=== PATIENT | male | born 1960 | race Caucasian/White ===

== ENCOUNTER 2018-11-11 05:35 | Emergency (ER) | payer BC ==
[2018-11-11 06:54] VITALS: TEMP 97.8; BMI 28.8
[2018-11-11] MEDS ORDERED: KETOROLAC TROMETHAMINE 60 MG/2 ML VIAL IM ONE (09:15)
[2018-11-11] MEDS ORDERED: diazePAM 2 MG TABLET PO ONE (09:15)
[2018-11-11] MEDS ORDERED: traMADol HCL 50 MG TABLET PO ONE (09:15)
[2018-11-11 09:30] LABS: BASO % 0.5 % (0-2.0); EOS % 0.7 % (0-4.5); HEMATOCRIT 44.7 % (35.4-49); HEMOGLOBIN 15.6 GM/dL (11.7-16.9); LYMPH % 16.2 % (8-40); MCH 31.3 pg (25.7-33.7); MCHC 34.9 g/dl (32.0-35.9); MEAN CELL VOLUME 89.7 fl (80-96); MEAN PLT VOLUME 8.4 fl (7.5-11.1); MONO % 5.1 % (3.8-10.2); NEUT % 77.5 % (42.8-82.8); PLATELET COUNT 220 K/MM3 (134-434); RBC 4.98 M/mm3 (4.00-5.60); RDW 12.9 % (11.9-15.9); WHITE BLOOD COUNT 9.7 K/mm3 (4.0-10.0)
--- NOTE | 2018-11-11 09:54 | EKG ---
Test Reason : Blood Pressure : / mmHG Vent. Rate : 061 BPM Atrial Rate : 061 BPM P-R Int : 134 ms QRS Dur : 098 ms QT Int : 426 ms P-R-T Axes : 048 038 018 degrees QTc Int : 428 ms NORMAL SINUS RHYTHM WITH SINUS ARRHYTHMIA NONSPECIFIC T WAVE ABNORMALITY ABNORMAL ECG NO PREVIOUS ECGS AVAILABLE Confirmed by HAMMAD BOLAÑOS, DAVE ([id number]) on 11/11/2018 9:53:51 AM Referred By: Confirmed By:DAVE CUEVA MD
[2018-11-11] MEDS ORDERED: KETOROLAC TROMETHAMINE 30 MG/1 ML VIAL IVPUSH ONE (10:09)
[2018-11-11] MEDS ORDERED: KETOROLAC TROMETHAMINE 30 MG/1 ML VIAL ONE (10:18)
[2018-11-11] MEDS ORDERED: diazePAM 2 MG TABLET ONE (10:18)
[2018-11-11 10:31] LABS: ALBUMIN 4.1 g/dl (3.4-5.0); ALK PHOS 95 U/L (45-117); ANION GAP 7 MMOL/L (8-16); BILIRUBIN,TOTAL 0.7 mg/dL (0.2-1); BLOOD UREA NITROGEN 12.2 mg/dL (7-18); CALCIUM 8.7 mg/dL (8.5-10.1); CHLORIDE 102 mmol/L (98-107); CO2 27 mmol/L (21-32); CREATININE 0.8 mg/dL (0.55-1.3); GLUCOSE,RANDOM 185 mg/dL (74-106); POTASSIUM 4.2 mmol/L (3.5-5.1); SGOT/AST 22 U/L (15-37); SGPT/ALT 66 U/L (13-61); SODIUM 136 mmol/L (136-145); TOT PROT 6.7 g/dl (6.4-8.2)
--- NOTE | 2018-11-11 11:35 | PDOC ---
History of Present Illness - General Chief Complaint: Pain, Acute Stated Complaint: NECK PAIN Time Seen by Provider: 11/11/18 07:30 History Source: Patient Exam Limitations: No Limitations - History of Present Illness Initial Comments: 11/11/18 11:35 58-year-old male with no severe past medical history presents with 9 days of left neck/shoulder pain. Patient states he was moving furniture about 10 days ago, the next day developed left trapezius/scapular discomfort that has been worsening since then. Worse with neck rotation, some paresthesias in the left hand without weakness, no direct injury. Taking intermittent doses of Aleve and Tylenol without relief, was seen at urgent care yesterday and prescribed a muscle relaxant, presents now for evaluation secondary to persistent pain. no direct injury, ? history of lumbar disc disease but no chronic neck issues. no cardiopulmonary complaints. Past History - Past Medical History Allergies/Adverse Reactions: Allergies Allergy/AdvReac Type Severity Reaction Status Date / Time No Known Allergies Allergy Verified 06/28/15 08:38 Home Medications: Ambulatory Orders Citalopram Hydrobromide [Celexa -] 40 mg PO HS 05/31/14 Cetirizine HCl [Zyrtec -] 10 mg PO DAILY PRN 11/11/18 Metaxalone [Metaxall] 800 mg PO ASDIR PRN 11/11/18 Naproxen 500 mg PO BID PRN #20 tablet 11/11/18 Tramadol HCl 50 mg PO BID PRN #10 tablet MDD 2 tabs 11/11/18 CVA: No COPD: No Psychiatric Problems: Yes Other medical history: sleep apnea, on CPAP, - Surgical History Appendectomy: Yes - Immunization History Immunization Up to Date: No - Suicide/Smoking/Psychosocial Hx Smoking History: Never smoked Have you smoked in the past 12 months: No Hx Alcohol Use: No Drug/Substance Use Hx: No Substance Use Type: None Review of Systems - Review of Systems Constitutional: No: Chills, Fever Respiratory: No: Cough, Shortness of Breath Cardiac (ROS): No: Chest Pain ABD/GI: No: Nausea, Vomiting Integumentary: Yes: See HPI All Other Systems: Reviewed and Negative *Physical Exam - Vital Signs Last Vital Signs Temp Pulse Resp BP Pulse Ox 97.8 F 60 18 171/93 H 96 11/11/18 05:38 11/11/18 10:20 11/11/18 10:20 11/11/18 10:20 11/11/18 10:20 - Physical Exam Comments: 11/11/18 11:43 Afebrile. GENERAL: The patient is awake, alert, and fully oriented, in mod acute distress 2/2 L trap pain. HEAD: Normal with no signs of trauma. EYES: PERRL, EOMI, sclera anicteric, conjunctiva clear with no pallor. ENT: oropharynx clear without exudates. Moist mucous membranes. LROM neck 2/2 pain, reproducible tender L trap without swelling/discoloration/hematoma. NECK: Normal range of motion, supple without lymphadenopathy, JVD, or masses. LUNGS: Breath sounds equal, clear to auscultation bilaterally. No wheeze/ crackles. HEART: Regular rate and rhythm, normal S1 and S2 without murmur or rub. ABDOMEN: Soft/nontender/nondistended. BS wnl. No guarding or rebound. No palpable masses. No hepatosplenomegaly. EXTREMITIES: 5/5 strength shoulder/elbow/wrist/hand, sensation and vascular intact distally. Normal range of motion, no edema. 2+ distal pulses. No cords, erythema, or tenderness. NEUROLOGICAL: Cranial nerves II through XII grossly intact. Normal speech, normal gait. PSYCH: Normal mood, normal affect. SKIN: Warm, Dry, no rashes or lesions noted. Heart Score/ECG Review #1 ECG reviewed & interpreted by me at: 06:49 General ECG Interpretation: Sinus Rhythm, Normal Rate (61), Normal Intervals ( qtc 428, borderline LVH), No acute ischemic changes ED Treatment Course - LABORATORY CBC & Chemistry Diagram: 11/11/18 09:12 11/11/18 09:12 - ADDITIONAL ORDERS Additional order review: Laboratory Results 11/11/18 09:12 Sodium 136 Potassium 4.2 Chloride 102 Carbon Dioxide 27 Anion Gap 7 L BUN 12.2 Creatinine 0.8 Est GFR (CKD-EPI)AfAm 114.13 Est GFR (CKD-EPI)NonAf 98.47 Random Glucose 185 H Calcium 8.7 Total Bilirubin 0.7 AST 22 ALT 66 H Alkaline Phosphatase 95 Creatine Kinase 209 Creatine Kinase Index 1.1 CK-MB (CK-2) 2.4 Troponin I < 0.02 Total Protein 6.7 Albumin 4.1 11/11/18 09:12 RBC 4.98 MCV 89.7 MCHC 34.9 RDW 12.9 MPV 8.4 Neutrophils % 77.5 Lymphocytes % 16.2 Monocytes % 5.1 Eosinophils % 0.7 Basophils % 0.5 - Medications Given in the ED: ED Medications Discontinued Medications Generic Name Dose Route Start Last Admin Trade Name Freq PRN Reason Stop Dose Admin Diazepam 2 mg 11/11/18 09:15 11/11/18 10:15 Valium - PO 11/11/18 09:16 2 mg ONCE ONE Administration Ketorolac Tromethamine 60 mg 11/11/18 09:15 11/11/18 11:01 Toradol Injection - IM 11/11/18 09:16 Not Given ONCE ONE Ketorolac Tromethamine 30 mg 11/11/18 10:09 11/11/18 10:15 Toradol Injection - IVPUSH 11/11/18 10:10 30 mg ONCE ONE Administration Tramadol HCl 50 mg 11/11/18 09:15 11/11/18 10:15 Ultram - PO 11/11/18 09:16 Not Given ONCE ONE Medical Decision Making - Medical Decision Making 11/11/18 12:00 58-year-old male presents with 9 days of progressive left trapezius strain, neurologically intact without evidence of infectious process or cardiopulmonary process, no other red flags on history or physical exam. Labs and EKG performed to rule out any atypical ACS presentation, within normal limits and reassuring Patient felt markedly improved after Toradol, tramadol, and Valium for muscle relaxant. Remains neurovascularly intact with significantly increased range of motion of his left shoulder and neck, agrees with discharge plan and will follow -up with orthopedics, understands return criteria. *DC/Admit/Observation/Transfer Diagnosis at time of Disposition: Strain of left trapezius muscle Qualifiers: Encounter type: initial encounter Qualified Code(s): S46.812A - Strain of other muscles, fascia and tendons at shoulder and upper arm level, left arm, initial encounter - Discharge Dispostion Disposition: HOME Condition at time of disposition: Improved - Prescriptions Prescriptions: Naproxen 500 mg PO BID PRN #20 tablet PRN Reason: Pain Tramadol HCl 50 mg PO BID PRN #10 tablet MDD 2 tabs PRN Reason: Pain - Referrals Referrals: Vazquez Del Toro MD [Staff Physician] - - Patient Instructions Printed Discharge Instructions: Whiplash, DI for Cervical Muscle Strain, DI for Cervical Radiculopathy Additional Instructions: Activity as tolerated, avoiding heavy lifting and bedrest. Stay hydrated. Blood tests and an EKG today showed no acute abnormalities. Your pain is likely due to soft tissue strain in the L trapezius muscle. naproxen twice daily as prescribed for 5 days (take with meals), then as needed for moderate pain. muscle relaxant as previously prescribed as needed for muscle spasm. Tramadol as prescribed as needed for severe pain. Tramadol can make you light-headed so take proper precautions. Continue your medications as previously prescribed by your physician. You should follow up with your primary doctor as soon as possible regarding today's emergency department visit. Consider calling Dr. Del Toro/Roberto, an orthopedic , if symptoms persist. An MRI may be necessary to further evaluate the cause. Return to the emergency department for any new or concerning symptoms, particularly persistent or intolerable pain, severe discoloration or swelling, weakness, chest pain or shortness of breath. - Post Discharge Activity
[2018-11-11 13:09] VITALS: BP 184/96; PULSE 78
== END 2018-11-11 12:57 | disposition home or self-care (01) ==
LOC: JER 05:35
PROC: 3E0333Z Introduction of Anti-inflammatory into Peripheral Vein, Percutaneous Approach (ICD-10-PCS; principal; 2018-11-11)
DX: S46.812A Strain of other muscles, fascia and tendons at shoulder and upper arm level, left arm, initial encounter (principal); X50.0XXA Overexertion from strenuous movement or load, initial encounter; Y93.E9 Activity, other interior property and clothing maintenance; Y92.89 Other specified places as the place of occurrence of the external cause; Y99.8 Other external cause status
CPT/HCPCS: 36415; 80053; 82550; 82553; 84484; 85025; 93005; 93010; 99283-25

== ENCOUNTER 2019-05-16 16:58 | Emergency (ER) | payer BC ==
[2019-05-16 17:22] VITALS: BMI 30.5
--- NOTE | 2019-05-16 18:19 | PDOC ---
History of Present Illness - General Chief Complaint: CVA/TIA Stated Complaint: SENT FOR EVALUATION SPEECH PROBLEM 10 DAYS Time Seen by Provider: 05/16/19 17:19 - History of Present Illness Initial Comments: 05/16/19 18:14 59y/o M hx of T2DM, HTN, HLD presents to the ER with complaints of possible TIA from neurologist office. Episodes began 10 days ago with periods of unintelligible speech per his (who is at bedside). Episodes would last a few minutes then resolve. Last week he had an icindent with facial droop which equally resolve. This was followed by a 15 minute dpisode of dizziness, lightheaded, bilateral numbness and tingling the next day. Pt was then referred by PCP to neurologist who sent him here for further evaluation. He denies any falls/head trauma prior to onset of symptoms, loss of consciiousness, nausea, vomiting blurry vision, fevers, chills, diarrhea. 05/16/19 18:24 Past History - Past Medical History Allergies/Adverse Reactions: Allergies Allergy/AdvReac Type Severity Reaction Status Date / Time No Known Allergies Allergy Verified 05/16/19 17:02 Home Medications: Ambulatory Orders Citalopram Hydrobromide [Celexa -] 40 mg PO HS 05/31/14 Cetirizine HCl [Zyrtec -] 10 mg PO DAILY PRN 11/11/18 Atorvastatin Ca [Lipitor] 20 mg PO HS 05/16/19 Metformin HCl [Glucophage] 500 mg PO BID 05/16/19 Telmisartan [Micardis] 40 mg PO HS 05/16/19 CVA: No COPD: No Diabetes: Yes HTN: Yes Hypercholesterolemia: Yes Psychiatric Problems: Yes (ANXIETY) - Surgical History Appendectomy: Yes - Immunization History Immunization Up to Date: No - Psycho Social/Smoking Cessation Hx Smoking History: Never smoked Have you smoked in the past 12 months: No Information on smoking cessation initiated: No Hx Alcohol Use: No Drug/Substance Use Hx: No Substance Use Type: None Review of Systems - Review of Systems Constitutional: No: Chills, Fever HEENTM: No: Blurred Vision Respiratory: No: Cough, Shortness of Breath Cardiac (ROS): No: Chest Pain, Irregular Heart Rate ABD/GI: No: Nausea, Vomiting : No: Burning, Dysuria Musculoskeletal: No: Back Pain, Gout Integumentary: No: Bruising, Change in Color Neurological: Yes: Headache. No: Weakness Psychiatric: Yes: Mood Swings *Physical Exam - Vital Signs Last Vital Signs Temp Pulse Resp BP Pulse Ox 98 F 67 16 136/83 05/16/19 17:01 05/16/19 17:01 05/16/19 17:01 05/16/19 17:01 - Physical Exam 05/16/19 18:23 PE: GENERAL: Awake, alert, and fully oriented, in no acute distress HEAD: No signs of trauma, normocephalic, atraumatic EYES: PERRLA, EOMI, sclera anicteric, conjunctiva clear ENT: Auricles normal inspection, hearing grossly normal, nares patent, oropharynx clear without exudates. Moist mucosa NECK: Normal ROM, supple, no lymphadenopathy, JVD, or masses LUNGS: No distress, speaks full sentences, clear to auscultation bilaterally HEART: Regular rate and rhythm, normal S1 and S2, no murmurs, rubs or gallops, peripheral pulses normal and equal bilaterally. ABDOMEN: Soft, nontender, normoactive bowel sounds. No guarding, no rebound. No masses EXTREMITIES : Normal inspection, Normal range of motion, no edema. No clubbing or cyanosis NEUROLOGICAL: Cranial nerves II through XII grossly intact. Normal speech, normal gait. minute flattening of left nasolabial fold. NIHSS 1 SKIN: Warm, Dry, normal turgor, no rashes or lesions noted ED Treatment Course - LABORATORY CBC & Chemistry Diagram: 05/16/19 18:00 05/16/19 18:00 - RADIOLOGY Radiology Studies Ordered: Category Date Time Status HEAD CT (STROKE) [CT] Stat CT Scan 05/16/19 17:56 Ordered Medical Decision Making - Medical Decision Making 05/16/19 18:24 59y/o M hx of T2DM, HTN, HLD presents to the ER with complaints of possible TIA from neurologist office. cbc, cmp, pt/inr, ptt, ekg, head ct w/o contrast 05/16/19 18:25 EKG: normal sinus rhythm, cannot rule out anterior infrarct, age undetermined. 05/16/19 18:[address] no evidence of acute intracranial pathology signed out to night team 05/31/19 02:09 Discharge - Discharge Information Problems reviewed: Yes Clinical Impression/Diagnosis: History of TIAs Condition: Stable Disposition: HOME - Follow up/Referral Referrals: Shlomo De Anda [Primary Care Provider] - - Patient Discharge Instructions Patient Printed Discharge Instructions: Transient Ischemic Attack Additional Instructions: Aspirin 81 mg daily Return to ER immediately if you have any facial weakness, extremity weakness, difficulty speaking or other acute neurologic symptoms Follow-up with your neurologist, within the next 4 to 5 days - Post Discharge Activity
[2019-05-16 18:24] LABS: BASO % 0.5 % (0-2.0); HEMATOCRIT 40.9 % (35.4-49); HEMOGLOBIN 13.8 GM/dl (11.7-16.9); LYMPH % 31.8 % (8-40); MCHC 33.6 g/dl (32.0-35.9); MEAN CELL VOLUME 92.1 fl (80-96); MONO % 8.2 % (3.8-10.2); NEUT % 54.5 % (42.8-82.8); PLATELET COUNT 251 K/MM3 (134-434); RBC 4.44 M/mm3 (4.00-5.60); RDW 12.1 % (11.9-15.9); WHITE BLOOD COUNT 7.4 K/mm3 (4.0-10.8)
[2019-05-16 18:28] LABS: BILIRUBIN,TOTAL 0.5 mg/dl (0.2-1); CALCIUM 8.9 mg/dl (8.5-10); CREATININE 0.8 mg/dl (0.55-1.3); POTASSIUM 3.9 mmol/L (3.5-5.1); TOT PROT 6.8 g/dl (6.4-8.2)
[2019-05-16 18:29] LABS: ACTIVATED PTT 33.2 SECONDS (25.2-36.5)
[2019-05-16 18:33] LABS: INR 1.19 (0.82-1.09); PROTHROMBIN TIME (PATIENT) 13.3 SEC (10.2-13.0)
[2019-05-16 18:33] LABS: CHOLESTEROL 143 mg/dl (50-200); HDL CHOLESTEROL 38 mg/dl (40-60); LDL CHOLESTEROL (ONLY DFH) 69 mg/dl (5-100); TRIGLYCERIDES 179 mg/dl (0-150)
--- NOTE | 2019-05-16 19:36 | PDOC ---
*Physical Exam - Vital Signs Last Vital Signs Temp Pulse Resp BP Pulse Ox 98 F 67 16 136/83 05/16/19 17:01 05/16/19 17:01 05/16/19 17:01 05/16/19 17:01 ED Treatment Course - LABORATORY CBC & Chemistry Diagram: 05/16/19 18:00 05/16/19 18:00 - ADDITIONAL ORDERS Additional order review: Laboratory Results 05/16/19 05/16/19 05/16/19 18:00 18:00 18:00 PT with INR INR PTT (Actin FS) Sodium Potassium Chloride Carbon Dioxide Anion Gap BUN Creatinine Est GFR (CKD-EPI)AfAm Est GFR (CKD-EPI)NonAf Random Glucose Calcium Total Bilirubin AST ALT Alkaline Phosphatase Creatine Kinase 49 Troponin I < 0.03 Total Protein Albumin Triglycerides 179 H Cholesterol 143 Total LDL Cholesterol 69 HDL Cholesterol 38 L 05/16/19 05/16/19 18:00 17:56 PT with INR 13.3 H INR 1.19 PTT (Actin FS) 33.2 Sodium 133 L Potassium 3.9 Chloride 101 Carbon Dioxide 27 Anion Gap 5 L BUN 15.0 Creatinine 0.8 Est GFR (CKD-EPI)AfAm 113.33 Est GFR (CKD-EPI)NonAf 97.78 Random Glucose 198 H Calcium 8.9 Total Bilirubin 0.5 AST 13 L ALT 21 Alkaline Phosphatase 70 Creatine Kinase Troponin I Total Protein 6.8 Albumin 4.0 Triglycerides Cholesterol Total LDL Cholesterol HDL Cholesterol 05/16/19 18:00 RBC 4.44 MCV 92.1 MCHC 33.6 RDW 12.1 MPV 9.0 Neutrophils % 54.5 D Lymphocytes % 31.8 D Monocytes % 8.2 Eosinophils % 5.0 H D Basophils % 0.5 D ED Progress Note - Progress Note Progress Note: Care of this patient received from . Results of the noncontrast head CT (negative for bleed, mass, CVA or other acute intracranial abnormality) discussed with the patient and his . Plan to admit patient (because of history of multiple TIAs and persistence of some symptoms) discussed with the patient and his . Patient denies any persistence of symptoms. He states that the neurologist (, whom he saw for the first time today) recommended urgent CT today to rule out bleed since the plan was for the patient to start low-dose aspirin daily. In light of the lack of persistence of previous symptoms, no development of new symptoms and the fact that the very little work-up would be likely over the next 2 days (weekend), admission not warranted. Attempt to contact the patient's neurologist, Dr. Guerra, at [facility] unsuccessful: Answering service stated that Dr. Guerra was not on staff at [facility]. Patient and his state that Dr. Guerra did say that he had just joined [facility]. Patient will be started on aspirin 81 mg daily and a copy of the interpretation of the noncontrast head CT will be given to the patient. He should return to the ER immediately if he has any development of neurologic symptoms. Otherwise , he should contact his neurologist and follow-up within the next 3 to 4 days Discharge - Discharge Information Problems reviewed: Yes Clinical Impression/Diagnosis: History of TIAs Condition: Stable Disposition: HOME - Follow up/Referral Referrals: Shlomo De Anda [Primary Care Provider] - - Patient Discharge Instructions Patient Printed Discharge Instructions: Transient Ischemic Attack Additional Instructions: Aspirin 81 mg daily Return to ER immediately if you have any facial weakness, extremity weakness, difficulty speaking or other acute neurologic symptoms Follow-up with your neurologist, within the next 4 to 5 days - Post Discharge Activity
[2019-05-16 19:58] VITALS: BP 142/82; PULSE 58; TEMP 97.8
[2019-05-16] MEDS ORDERED: ASPIRIN 81 MG CHEWABLE TABLETS ONE (21:46)
--- NOTE | 2019-05-17 09:16 | EKG ---
Test Reason : Blood Pressure : / mmHG Vent. Rate : 069 BPM Atrial Rate : 069 BPM P-R Int : 156 ms QRS Dur : 110 ms QT Int : 408 ms P-R-T Axes : 033 -10 013 degrees QTc Int : 437 ms NORMAL SINUS RHYTHM CANNOT RULE OUT ANTERIOR INFARCT , AGE UNDETERMINED ABNORMAL ECG WHEN COMPARED WITH ECG OF 11-NOV-2018 06:49, NO SIGNIFICANT CHANGE WAS FOUND Confirmed by TORY BOLAÑOS, NATALIE ([id number]) on 05/17/2019 9:16:42 AM Referred By: MD RODNEY Confirmed By:NATALIE SPEARS MD
== END 2019-05-16 21:48 | disposition home or self-care (01) ==
LOC: FER 16:58
DX: Z86.73 Personal history of transient ischemic attack (TIA), and cerebral infarction without residual deficits (principal); E78.5 Hyperlipidemia, unspecified; I10 Essential (primary) hypertension; E11.9 Type 2 diabetes mellitus without complications; F41.9 Anxiety disorder, unspecified
CPT/HCPCS: 36415; 70450-TC; 71045-TC-FY; 80053; 80061; 82550; 84484; 85025; 85610; 85730; 93005; 99284-25

== ENCOUNTER 2019-06-24 20:54 | Inpatient (IN) | payer BC ==
[2019-06-24 21:22] VITALS: BMI 30.5
--- NOTE | 2019-06-24 21:57 | PDOC ---
History of Present Illness - General Chief Complaint: CVA/TIA Stated Complaint: POSSIBLE TIA SYMPTOMS Time Seen by Provider: 06/24/19 21:28 - History of Present Illness Initial Comments: 06/24/19 22:07 59 y/o M with PMH of HTN, TIA, DM, HLD, RACH presents to the ED for TIA symptoms. Pt and explain that around lunch time he noticed his right eyelid was droopy while at work . Then around dinner time (6pm), the noted that he was slurring his speech and that he had a right sided facial droop. According to the , the pt still is dysathric by the time of this interview. On further questioning, Pt had a similar episode a month ago and his neurologist (Dr Guerra) atothe time sent him for CT scan of the head and TIA/ CVA work/up which came back negative. He placed him on Aspirin 325 and increased is atorvastatin to 80mg daily. Pt denies any other FND, GALVAN, chest pain , palpitations, SOB or change in Urine/BM. PSH: umbilical hernia repair, appendectomy Social Hx:denies ROS: Constitutional: no fever,no chills HEENT: no throat pain, no dysphagia Cardiovascular: no chest pain, no palpitations Respiratory: no cough, no shortness of breath Gastrointestinal: no Nausea and vomiting Genitourinary: no dysuria no urgency Musculoskeletal: no myalgia, no arthralgia Skin: no bruising Neurologic: no headache, no weakness Psych: no agitation, no anxiety PE: NIHSS 1 VSS GEN: NAD Neuro: minimal flattening of the nasolabial fold, CN 2-12 intact, no nystagmus, motor strength 5/5 in all muscle groups, sensation intact throughout, 2+ reflexes in U&L extremities, gait normal, no dysdiadokinesia, no dysmetria, negative romberg, HEENT: PERRLA, moist membrane, clear conjunctiva NECK: no JVD CHEST: vesicular breath sounds b/l HEART: RRR no murmur, rubs or gallop ABDOMEN: + BS, obese abdomen, NTND Extremities: 2+ pulses, no edema SKIN: no bruises MSK: no arthralgia, no joint tenderness assessment: TIA vs early CVA vs neuromuscular disease 06/24/19 22:10 Plan: Head CT w/o contrast, EKG, cardiac profile, CBC, CMP, lipid panel, Pt/INR/ aPTT, UA, type and screen, stroke order set call Neuro 06/24/19 22:15 spoke with neurology : give patient aspirin 325, and will follow pt in the morning in light of questionable timing 06/24/19 22:37 EKG NSR , QTc 06/24/19 22:47 CBC WBC 9.3 K/mm3 (4.0-10.0) 06/24/19 22:10 RBC 4.55 M/mm3 (4.00-5.60) 06/24/19 22:10 Hgb 14.0 GM/dL (11.7-16.9) 06/24/19 22:10 Hct 41.5 % (35.4-49) 06/24/19 22:10 MCV 91.1 fl (80-96) 06/24/19 22:10 MCH 30.7 pg (25.7-33.7) 06/24/19 22:10 MCHC 33.7 g/dl (32.0-35.9) 06/24/19 22:10 RDW 13.1 % (11.9-15.9) 06/24/19 22:10 Plt Count 215 K/MM3 (134-434) 06/24/19 22:10 MPV 9.0 fl (7.5-11.1) 06/24/19 22:10 Absolute Neuts (auto) 5.5 K/mm3 (1.5-8.0) 06/24/19 22:10 Neutrophils % 58.8 % (42.8-82.8) D 06/24/19 22:10 Lymphocytes % 27.8 % (8-40) D 06/24/19 22:10 Monocytes % 9.2 % (3.8-10.2) D 06/24/19 22:10 Eosinophils % 3.8 % (0-4.5) D 06/24/19 22:10 Basophils % 0.4 % (0-2.0) 06/24/19 22:10 Nucleated RBC % 0 % (0-0) 06/24/19 22:10 unremarkable 06/24/19 22:52 INR, PTT INR 1.06 (0.83-1.09) 06/24/19 22:10 PT 12.50, aPTT 35.1 cmp and lipid panel pending 06/24/19 22:54 CMP Sodium 139 mmol/L (136-145) 06/24/19 22:10 Potassium 3.8 mmol/L (3.5-5.1) 06/24/19 22:10 Chloride 103 mmol/L (98-107) 06/24/19 22:10 Carbon Dioxide 28 mmol/L (21-32) 06/24/19 22:10 Anion Gap 8 MMOL/L (8-16) 06/24/19 22:10 BUN 18.9 mg/dL (7-18) H 06/24/19 22:10 Creatinine 0.9 mg/dL (0.55-1.3) 06/24/19 22:10 Est GFR (CKD-EPI)AfAm 107.97 06/24/19 22:10 Est GFR (CKD-EPI)NonAf 93.16 06/24/19 22:10 Random Glucose 189 mg/dL (74-106) H 06/24/19 22:10 Calcium 8.9 mg/dL (8.5-10.1) 06/24/19 22:10 Total Bilirubin 0.8 mg/dL (0.2-1) 06/24/19 22:10 AST 18 U/L (15-37) 06/24/19 22:10 ALT 43 U/L (13-61) 06/24/19 22:10 Alkaline Phosphatase 93 U/L (45-117) 06/24/19 22:10 Creatine Kinase 87 U/L (26-308) 06/24/19 22:10 Troponin I < 0.02 ng/ml (0.00-0.05) 06/24/19 22:10 Total Protein 6.8 g/dl (6.4-8.2) 06/24/19 22:10 Albumin 3.9 g/dl (3.4-5.0) 06/24/19 22:10 Triglycerides 122 mg/dL (0-150) 06/24/19 22:10 Cholesterol 123 mg/dL (50-200) 06/24/19 22:10 Total LDL Cholesterol 57 mg/dL (5-100) 06/24/19 22:10 HDL Cholesterol 48 mg/dL (40-60) 02/25/20 22:10 unremarkable except for hyperglycemia CXR with no acute pathology UA pending 06/24/19 23:18 will send admission microblog 06/24/19 23:25 06/24/19 23:40 Past History - Past Medical History Allergies/Adverse Reactions: Allergies Allergy/AdvReac Type Severity Reaction Status Date / Time No Known Allergies Allergy Verified 06/24/19 22:47 Home Medications: Ambulatory Orders Citalopram Hydrobromide [Celexa -] 40 mg PO HS 05/31/14 Cetirizine HCl [Zyrtec -] 10 mg PO DAILY PRN 11/11/18 Atorvastatin Ca [Lipitor] 20 mg PO HS 05/16/19 Metformin HCl [Glucophage] 500 mg PO BID 05/16/19 Telmisartan [Micardis] 40 mg PO HS 05/16/19 CVA: No COPD: No Diabetes: Yes HTN: Yes Hypercholesterolemia: Yes Psychiatric Problems: Yes (ANXIETY) - Surgical History Appendectomy: Yes - Immunization History Immunization Up to Date: No - Psycho Social/Smoking Cessation Hx Smoking History: Never smoked Have you smoked in the past 12 months: No Information on smoking cessation initiated: No Hx Alcohol Use: No Drug/Substance Use Hx: No Substance Use Type: None Neuro Specific PMHX - Complaint Specific PMHX Glaucoma: No Herniated Disk: No Laminectomy: No Migraine: No Multiple Sclerosis: No Neuropathy: No TIA: Yes *Physical Exam - Vital Signs Last Vital Signs Temp Pulse Resp BP Pulse Ox 98.1 F 72 18 149/89 100 06/24/19 21:10 06/24/19 21:10 06/24/19 21:10 06/24/19 21:10 06/24/19 21:10 NIH Stroke Scale - Last Known Well Date/Time & Onset Date Last Known Well: 06/24/19 Time Last Known Well: 18:00 (unclear exactly when started but noticed it at dinner) - Initial Evaluation Level of consciousness: Alert Ask patient the month and their age: Answers both correctly Ask patient to open & close eyes; make fist and let go: Obeys both correctly Best gaze (horizontal eye movement): Normal Visual field testing: No visual field loss Facial paresis (Show teeth/raise eyebrows/close eyes tight): Minor paralysis ( flattened nasolabial fold, asymmetry on smiling) Motor Function: Left Arm: Normal Motor Function: Left Leg: Normal (extends leg 30 degrees for 5 seconds without drift) Motor Function: Right Leg: Normal (extends leg 30 degrees for 5 seconds without drift) Limb Ataxia: No ataxia Sensory(Use pinprick test arms,legs,trunk,face/side to side): Normal Best language (Describe picture, name items, read sentences): No Aphasia Dysarthria (read several words): Normal articulation Extinction and Inattention: No abnormality Discharge - Discharge Information Problems reviewed: Yes Clinical Impression/Diagnosis: History of TIAs Condition: Stable - Admission Yes - Follow up/Referral Referrals: ON STAFF,NOT [Primary Care Provider] - - Patient Discharge Instructions - Post Discharge Activity
[2019-06-24] MEDS ORDERED: SODIUM CHLORIDE 1,000 ML IV SCH (22:00)
[2019-06-24] MEDS ORDERED: ASPIRIN 325 MG TABLET PO ONE (22:06)
[2019-06-24] MEDS ORDERED: ATORVASTATIN CA 80 MG TABLET (FP) PO ONE (22:07)
[2019-06-24 22:51] LABS: BASO % 0.4 % (0-2.0); EOS % 3.8 % (0-4.5); HEMATOCRIT 41.5 % (35.4-49); LYMPH % 27.8 % (8-40); MCH 30.7 pg (25.7-33.7); MCHC 33.7 g/dl (32.0-35.9); MEAN CELL VOLUME 91.1 fl (80-96); MONO % 9.2 % (3.8-10.2); NEUT % 58.8 % (42.8-82.8); PLATELET COUNT 215 K/MM3 (134-434); RBC 4.55 M/mm3 (4.00-5.60); RDW 13.1 % (11.9-15.9); WHITE BLOOD COUNT 9.3 K/mm3 (4.0-10.0)
[2019-06-24 23:01] LABS: INR 1.06 (0.83-1.09); PROTHROMBIN TIME (PATIENT) 12.5 SEC (9.7-13.0)
[2019-06-24 23:04] LABS: ACTIVATED PTT 35.1 SECONDS (25.2-36.5)
[2019-06-24] MEDS ORDERED: ASPIRIN 325 MG ENTERIC COATED TABLET (FP) ONE (23:04)
[2019-06-24] MEDS ORDERED: ATORVASTATIN CA 80 MG TABLET (FP) ONE (23:04)
[2019-06-24 23:13] LABS: ALBUMIN 3.9 g/dl (3.4-5.0); BILIRUBIN,TOTAL 0.8 mg/dL (0.2-1); BLOOD UREA NITROGEN 18.9 mg/dL (7-18); CALCIUM 8.9 mg/dL (8.5-10.1); CREATININE 0.9 mg/dL (0.55-1.3); POTASSIUM 3.8 mmol/L (3.5-5.1); TOT PROT 6.8 g/dl (6.4-8.2)
--- NOTE | 2019-06-24 23:22 | PDOC ---
Documentation entered by Genie Quinn SCRIBE, acting as scribe for Shereen Quevedo DO. Shereen Quevedo DO: This documentation has been prepared by the Kai frausto Nirvannie, SCRIBE, under my direction and personally reviewed by me in its entirety. I confirm that the documentation accurately reflects all work, treatment, procedures, and medical decision making performed by me. Attending Attestation - Resident Resident Name: KennethJeane - ED Attending Attestation I have performed the following: I have examined & evaluated the patient, The case was reviewed & discussed with the resident, I agree w/resident's findings & plan, Exceptions are as noted - HPI HPI: 06/24/19 22:06 The patient is a 59 year old male, with a significant past medical history of TIA, T2DM, HTN, HLD, who presents to the emergency department with right facial droop, right eye droop, and dysarthria. As per at bedside, while at work at 12pm patient had depicted a right facial droop and right eye droop. at bedside notes at 6pm upon returning home from work he had perceived dysarthria by his . and family denies any recent head/neck trauma or recent falls. Patient notes a recent full outpatient workup (echo, carotid uss) at [facility] after an ER visit for TIA. Allergies: NKDA Primary Care Physician: Dr. De Anda Neurologist: Dr. Guerra Last known well: Before 12pm - Physicial Exam PE: 06/24/19 22:09 Agree with resident exam. 06/24/19 22:39 GENERAL: Awake, in no acute distress HEAD: No signs of trauma EYES: PERRLA, EOMI, sclera anicteric, conjunctiva clear, visual acuity grossly intact ENT: Moist mucosa NECK: Normal ROM, supple, no lymphadenopathy or JVD. LUNGS: Breath sounds equal, clear to auscultation bilaterally. No wheezes, and no crackles. Normal work of breathing. HEART: Regular rate and rhythm, normal S1 and S2, no murmurs, rubs or gallops ABDOMEN: Soft, nontender, normoactive bowel sounds. No guarding. Non- distended. BACK: No midline tenderness. EXTREMITIES: Normal range of motion, no edema. No clubbing or cyanosis. No erythema, or tenderness NEUROLOGICAL: Alert, and oriented x4, Strength and sensation 5/5 and grossly intact to upper and lower extremities. +Mild right facial droop mainly affecting the upper lid. SKIN: Warm, Dry, normal turgor, no rashes or lesions noted. - Medical Decision Making 06/24/19 23:21 59-year-old male with right lid droop and dysarthria perceived by family now partially resolved Onset of lid symptoms sometime between 8 AM and noon, onset of perceived dysarthria between 12 PM and 6 PM Patient states he feels fine CT scan of the brain shows nothing acute Case discussed with neurology on-call by the medical lab specialist who recommends aspirin and admission for further evaluation as this is the second episode patient has had NIH scale recorded Due to questionable time of onset of symptoms and partial resolution patient will not qualify for thrombolytics at this time
[2019-06-24 23:37] LABS: PH,URINE 5.5 (5.0-8.0); URINE APPEARANCE CLEAR; URINE BILIRUBIN NEGATIVE (NEGATIVE); URINE COLOR YELLOW; URINE GLUCOSE (UA) TRACE (NEGATIVE); URINE KETONE NEGATIVE (NEGATIVE); URINE LEUK ESTERASE NEGATIVE (NEGATIVE); URINE NITRITE NEGATIVE (NEGATIVE); URINE PROTEIN NEGATIVE (NEGATIVE)
--- NOTE | 2019-06-25 00:12 | HP ---
CHIEF COMPLAINT: dysarthria, L facial droop PCP: Dr. Contreras HISTORY OF PRESENT ILLNESS: 59 y.o. M PMH HTN, HLD, DM type 2, RAHC, TIA 1 month ago presenting for L facial droop & mild dysarthria. The patient said he noticed these symptoms at 11AM when his pointed them out. When he returned home from work his son also noticed these symptoms which prompted him to come to the ER. He denies vision changes but does endorse a mild frontal headache which he has had intermittently over the last few weeks. The patient states he was only recently this year diagnosed with HTN, HLD and DM and was placed on medications for the first time by his PCP. He has been compliant with all medications. As per patient he experienced similar symptoms 1 month ago- was worked up for tia, no ischemia/ hemorrhage seen on Ct head at that time. ER course was notable for: (1) NIHSS 0 (2) CT head negative for ischemia/ hemorrhage (3) Ed contacted neuro, would like patient admitted for tia workup as this is 2nd episode in 1 month Recent Travel: denies PAST MEDICAL HISTORY: as per hpi PAST SURGICAL HISTORY: appendectomy Social History: Smoking: never smoked Alcohol: social use Drugs: denies Allergies No Known Allergies Allergy (Verified 06/24/19 22:47) HOME MEDICATIONS: Home Medications Medication Instructions Recorded Citalopram Hydrobromide [Celexa -] 40 mg PO HS 05/31/14 Cetirizine HCl [Zyrtec -] 10 mg PO DAILY PRN 11/11/18 Atorvastatin Ca [Lipitor] 40 mg PO HS 05/16/19 Metformin HCl [Glucophage] 500 mg PO BID 05/16/19 Telmisartan [Micardis] 40 mg PO HS 05/16/19 REVIEW OF SYSTEMS CONSTITUTIONAL: Absent: fever, chills, diaphoresis, generalized weakness, malaise, loss of appetite, weight change HEENT: Absent: rhinorrhea, nasal congestion, throat pain, throat swelling, difficulty swallowing, mouth swelling, ear pain, eye pain, visual changes CARDIOVASCULAR: Absent: chest pain, syncope, palpitations, irregular heart rate, lightheadedness, peripheral edema RESPIRATORY: Absent: cough, shortness of breath, dyspnea with exertion, orthopnea, wheezing, stridor, hemoptysis GASTROINTESTINAL: Absent: abdominal pain, abdominal distension, nausea, vomiting, diarrhea, constipation, melena, hematochezia GENITOURINARY: Absent: dysuria, frequency, urgency, hesitancy, hematuria, flank pain, genital pain MUSCULOSKELETAL: Absent: myalgia, arthralgia, joint swelling, back pain, neck pain SKIN: Absent: rash, itching, pallor HEMATOLOGIC/IMMUNOLOGIC: Absent: easy bleeding, easy bruising, lymphadenopathy, frequent infections ENDOCRINE: Absent: unexplained weight gain, unexplained weight loss, heat intolerance, cold intolerance NEUROLOGIC: headache, L facial droop, R periorbital numbness Absent: focal weakness or paresthesias, dizziness, unsteady gait, seizure, mental status changes, bladder or bowel incontinence PSYCHIATRIC: Absent: anxiety, depression, suicidal or homicidal ideation, hallucinations. PHYSICAL EXAMINATION Vital Signs - 24 hr 06/24/19 06/24/19 21:10 22:35 Temperature 98.1 F Pulse Rate 72 Respiratory 18 Rate Blood Pressure 149/89 O2 Sat by Pulse 100 98 Oximetry (%) GENERAL: Awake, alert, and fully oriented, in no acute distress. HEENT: NCAT. No facial droop on my exam/ no flattened nasolabial folds. No JVD LUNGS: Breath sounds equal, clear to auscultation bilaterally. No wheezes, and no crackles. No accessory muscle use. HEART: Regular rate and rhythm, normal S1 and S2 without murmur, rub or gallop. ABDOMEN: Soft, nontender, not distended, normoactive bowel sounds, no guarding MUSCULOSKELETAL: Normal range of motion at all joints. EXTREMITIES: 2+ pulses, warm, well-perfused. No peripheral edema. NEUROLOGICAL: Cranial nerves II-XII intact. Normal speech. Normal gait. Motor 5/5 all extremities. Sensory intact all extremities & CN5. Sharp/dull sensation intact b/l UE & LE. PSYCHIATRIC: Appropriate mood and affect. SKIN: Warm, dry, normal turgor, no rashes or lesions noted Laboratory Results - last 24 hr 06/24/19 06/24/19 06/24/19 22:10 22:10 22:10 WBC 9.3 RBC 4.55 Hgb 14.0 Hct 41.5 MCV 91.1 MCH 30.7 MCHC 33.7 RDW 13.1 Plt Count 215 MPV 9.0 Absolute Neuts (auto) 5.5 Neutrophils % 58.8 D Lymphocytes % 27.8 D Monocytes % 9.2 D Eosinophils % 3.8 D Basophils % 0.4 Nucleated RBC % 0 PT with INR 12.50 INR 1.06 PTT (Actin FS) 35.1 Sodium Potassium Chloride Carbon Dioxide Anion Gap BUN Creatinine Est GFR (CKD-EPI)AfAm Est GFR (CKD-EPI)NonAf Random Glucose Calcium Total Bilirubin AST ALT Alkaline Phosphatase Creatine Kinase 87 Troponin I < 0.02 Total Protein Albumin Triglycerides Cholesterol Total LDL Cholesterol HDL Cholesterol Urine Color Urine Appearance Urine pH Ur Specific [place] Urine Protein Urine Glucose (UA) Urine Ketones Urine Blood Urine Nitrite Urine Bilirubin Urine Urobilinogen Ur Leukocyte Esterase Blood Type Antibody Screen 06/24/19 06/24/19 06/24/19 22:10 22:10 23:25 WBC RBC Hgb Hct MCV MCH MCHC RDW Plt Count MPV Absolute Neuts (auto) Neutrophils % Lymphocytes % Monocytes % Eosinophils % Basophils % Nucleated RBC % PT with INR INR PTT (Actin FS) Sodium 139 Potassium 3.8 Chloride 103 Carbon Dioxide 28 Anion Gap 8 BUN 18.9 H Creatinine 0.9 Est GFR (CKD-EPI)AfAm 107.97 Est GFR (CKD-EPI)NonAf 93.16 Random Glucose 189 H Calcium 8.9 Total Bilirubin 0.8 AST 18 ALT 43 Alkaline Phosphatase 93 Creatine Kinase Troponin I Total Protein 6.8 Albumin 3.9 Triglycerides 122 Cholesterol 123 Total LDL Cholesterol 57 HDL Cholesterol 48 Urine Color Yellow Urine Appearance Clear Urine pH 5.5 Ur Specific [place] 1.024 Urine Protein Negative Urine Glucose (UA) Trace Urine Ketones Negative Urine Blood Negative Urine Nitrite Negative Urine Bilirubin Negative Urine Urobilinogen 1.0 Ur Leukocyte Esterase Negative Blood Type O POSITIVE Antibody Screen Negative ASSESSMENT/PLAN: 59 y.o. M PMH HTN, HLD, DM type 2, RACH, TIA presenting for L facial droop & dysarthria #TIA -CT head negative for acute ischemic or hemorrhagic changes -symptoms resolved -s/p ASA 325 mg -continue aspirin & high intensity statin -EKG showing NSR, qtc 427, no ST changes -trop negative x1 -f/u echo, carotid U/S -speech & swallow -neuro consulted -- Dr. Lunsford #HTN -restart AM home meds -monitor BP #HLD -continue high intensity statin -lipid panel WNL #DM2 -holding home oral agents -BGMs ACHS -ISS #FEN -gentle hydration ns @45cc/hr -monitor electrolytes -sodium/ fat controlled diet #Dispo telemetry Visit type - Emergency Visit Emergency Visit: Yes ED Registration Date: 06/25/19 Care time: The patient presented to the Emergency Department on the above date and was hospitalized for further evaluation of their emergent condition. - New Patient This patient is new to me today: Yes Date on this admission: 07/04/19 - Critical Care Critical Care patient: No ATTENDING PHYSICIAN STATEMENT I saw and evaluated the patient. I reviewed the resident's note and discussed the case with the resident. I agree with the resident's findings and plan as documented. SUBJECTIVE: OBJECTIVE: ASSESSMENT AND PLAN:
--- NOTE | 2019-06-25 00:13 | PN.NIHSS ---
NIH Stroke Scale - Initial Evaluation Level of consciousness: Alert Ask patient the month and their age: Answers both correctly Ask patient to open & close eyes; make fist and let go: Obeys both correctly Best gaze (horizontal eye movement): Normal Visual field testing: No visual field loss Facial paresis (Show teeth/raise eyebrows/close eyes tight): Normal symmetrical movement Motor Function: Left Arm: Normal Motor Function: Right Arm: Normal (extends arm 90 (or 45) degrees for 10 seconds without drift Motor Function: Left Leg: Normal (extends leg 30 degrees for 5 seconds without drift) Motor Function: Right Leg: Normal (extends leg 30 degrees for 5 seconds without drift) Limb Ataxia: No ataxia Sensory(Use pinprick test arms,legs,trunk,face/side to side): Normal Best language (Describe picture, name items, read sentences): No Aphasia Dysarthria (read several words): Normal articulation Extinction and Inattention: No abnormality - Total Score NIH Stroke Scale Score: 0
[2019-06-25] MEDS ORDERED: SODIUM CHLORIDE 1,000 ML IV SCH (00:45)
--- NOTE | 2019-06-25 01:21 | PN ---
Teaching Attending Note Name of Resident: Jagruti Walter ATTENDING PHYSICIAN STATEMENT I saw and evaluated the patient. I reviewed the resident's note and discussed the case with the resident. I agree with the resident's findings and plan as documented. SUBJECTIVE: 59-year-old male with history of hypertension, TIA about 1 month ago, diabetes mellitus, dyslipidemia, obstructive sleep apnea presents complaining of right eye droopiness and left mouth drooping which started at noon on 06/24/2019 and lasted several hours possibly until 8 PM that same day. Patient complained of mild frontal headache that was associated with this patient reported some dysarthria as well. He reported similar episode about 1 month ago at that time he reports TIA/CVA work-up came back as negative. At this time patient reports that he is back to his baseline and rather asymptomatic. He denies any headaches. OBJECTIVE: Last Vital Signs Temp Pulse Resp BP Pulse Ox 98.1 F 72 18 149/89 98 06/24/19 21:10 06/24/19 21:10 06/24/19 21:10 06/24/19 21:10 06/24/19 22:35 On physical exam patient was a middle-age man not in any distress. Neurological exam was essentially normal. No cranial nerve deficits appreciated no motor weakness in upper or lower extremities or sensory deficits appreciated. Lungs were clear to auscultation bilaterally, heart sounds were normal S1, S2 regular rate and rhythm. Abdomen was soft nontender. Abnormal Lab Results 06/24/19 22:10 BUN 18.9 H Random Glucose [address] evidence of acute intracranial pathology. ASSESSMENT AND PLAN: TIAright sided ptosis, left mouth droopinessnow resolved. Head CT was negative for any acute insults. Admit to telemetry Neurology consult Transthoracic echo Carotid Dopplerfollow-up report Brain MRI Neurochecks N.p.o. and speech and swallow eval Physical therapy evaluation #Diabetes mellitusuncontrolled NovoLog siding scale A1c #Hypertension Continue with home meds #RACH CPAP at night DVT prophylaxisheparin subcutaneously
[2019-06-25] MEDS ORDERED: PATIENT'S OWN MEDICATION (NON-FORMULARY) (Cetirizine Hcl 10 MG) PO PRN (04:31)
[2019-06-25 06:46] LABS: BASO % 0.5 % (0-2.0); HEMATOCRIT 40.2 % (35.4-49); HEMOGLOBIN 13.8 GM/dL (11.7-16.9); LYMPH % 32.6 % (8-40); MCH 30.9 pg (25.7-33.7); MCHC 34.3 g/dl (32.0-35.9); MEAN PLT VOLUME 8.8 fl (7.5-11.1); NEUT % 52.9 % (42.8-82.8); PLATELET COUNT 200 K/MM3 (134-434); RBC 4.47 M/mm3 (4.00-5.60); RDW 12.9 % (11.9-15.9); WHITE BLOOD COUNT 6.9 K/mm3 (4.0-10.0)
[2019-06-25 07:15] LABS: ALBUMIN 3.8 g/dl (3.4-5.0); ALK PHOS 83 U/L (45-117); ANION GAP 6 MMOL/L (8-16); BLOOD UREA NITROGEN 16.9 mg/dL (7-18); CALCIUM 8.8 mg/dL (8.5-10.1); CHLORIDE 103 mmol/L (98-107); CO2 30 mmol/L (21-32); CREATININE 0.8 mg/dL (0.55-1.3); GLUCOSE,RANDOM 117 mg/dL (74-106); POTASSIUM 4.1 mmol/L (3.5-5.1); SGOT/AST 18 U/L (15-37); SGPT/ALT 41 U/L (13-61); SODIUM 140 mmol/L (136-145); TOT PROT 6.4 g/dl (6.4-8.2)
[2019-06-25 07:31] LABS: INR 1.11 (0.83-1.09); PROTHROMBIN TIME (PATIENT) 13.1 SEC (9.7-13.0)
[2019-06-25] MEDS: INSULIN SLIDING SCALE (NOVOLOG) 1 VIAL SQ SCH ×2 (07:33→12:57)
[2019-06-25 07:34] LABS: ACTIVATED PTT 36.1 SECONDS (25.2-36.5)
--- NOTE | 2019-06-25 08:33 | CON.NEURO ---
Consult - Alcohol/Substance Use Hx Alcohol Use: No - Smoking History Smoking history: Never smoked Have you smoked in the past 12 months: No Home Medications - Allergies Allergies/Adverse Reactions: Allergies Allergy/AdvReac Type Severity Reaction Status Date / Time No Known Allergies Allergy Verified 06/24/19 22:47 - Home Medications Home Medications: Ambulatory Orders Citalopram Hydrobromide [Celexa -] 40 mg PO HS 05/31/14 Cetirizine HCl [Zyrtec -] 10 mg PO DAILY PRN 11/11/18 Atorvastatin Ca [Lipitor] 40 mg PO HS 05/16/19 Metformin HCl [Glucophage] 500 mg PO BID 05/16/19 Telmisartan [Micardis] 40 mg PO HS 05/16/19 Physical Exam-Neuro Vital Signs: Vital Signs Temperature 98.1 F 06/24/19 21:10 Pulse Rate 57 L 06/25/19 08:06 Respiratory Rate 18 06/25/19 06:17 Blood Pressure 138/71 06/25/19 06:17 O2 Sat by Pulse Oximetry (%) 100 06/25/19 08:25 Labs: CBC, BMP 06/25/19 05:50 06/25/19 05:50 INR, PTT INR 1.11 (0.83-1.09) H 06/25/19 05:50 Assessment/Plan cc Left facial droopiness and dysarthria on jun 24 HPI 59 year old male history of HTN,HLD,DM,TIA. Patient was taking aspirin and statin. He has left facial droopiness, headhace and difficulty talking. He continue to watch his symptoms and later he came to hospital. His ct head was unremarkable. Patient symptoms resolved. He denies any history of cad, abnormal heart rate or smoking. He has been taking his medicaiton. He works with [employer]. PAST MEDICAL HISTORY: as per hpi PAST SURGICAL HISTORY: appendectomy Social History: Smoking: never smoked Alcohol: social use Drugs: denies Allergies No Known Allergies Allergy (Verified 06/24/19 22:47) HOME MEDICATIONS: Home Medications Medication Instructions Recorded Citalopram Hydrobromide [Celexa -] 40 mg PO HS 05/31/14 Cetirizine HCl [Zyrtec -] 10 mg PO DAILY PRN 11/11/18 Atorvastatin Ca [Lipitor] 40 mg PO HS 05/16/19 Metformin HCl [Glucophage] 500 mg PO BID 05/16/19 Telmisartan [Micardis] 40 mg PO HS 05/16/19 ROS,FH,reviewed in chart NEUROLOGICAL EXAMINATION Alert oriented x 3, speech is normal, vss afebrile, neck is supple eomi, pupils reactive no face asymmetry, facial sensation is normal moving all ext ,strenght is noraml, ftn and hts is noraml sensation is noraml reflex are normal nih score is [address] head unremarkable carotid ultrasound normal mri of brain is pending Assessment/Plan TIA, risk factor including DM,HTN,HLD,History of tia, he was on aspirin and statin before this episode Plan: increase lipitor to 80 mg , and add plavix, ASPIRIN can be stopped - mri of brain tele monitoring and echo - strok education and life style modifications Thanking you so much Sammy Lunsford MD
[2019-06-25] MEDS ORDERED: LORATADINE 10 MG TABLET PO SCH (10:00)
[2019-06-25] MEDS ORDERED: CLOPIDOGREL BISULFATE 75 MG TABLET (FP) PO SCH (10:00)
[2019-06-25] MEDS ORDERED: ASPIRIN 81 MG CHEWABLE TABLETS PO SCH (10:00)
[2019-06-25] MEDS ORDERED: CITALOPRAM HYDROBROMIDE 20 MG TABLET PO SCH (10:00)
[2019-06-25] MEDS ORDERED: LOSARTAN POTASSIUM 50 MG TABLET (FP) PO SCH (10:00)
--- NOTE | 2019-06-25 10:14 | CONSULT ---
Admitting History and Physical - Primary Care Physician PCP: Lucho Martinez - Admission History of Present Illness: 59 y.o. M PMH HTN, HLD, DM type 2, RACH, TIA presenting for L facial droop & dysarthria ct head unremarkable carotid ultrasound normal mri of brain is pending Passed Dysphagia screen x 2 per EMR. Diet ordered. Not yet received. History Source: Patient Limitations to Obtaining History: No Limitations - Smoking History Smoking history: Never smoked Have you smoked in the past 12 months: No - Alcohol/Substance Use Hx Alcohol Use: No History - Admission Reason For Visit: HISTORY OF TRANSIENT ISCHEMIC ATTACK - Diagnostics X-ray: Report Reviewed CT Scan: Report Reviewed MRI: Pending - General Mental Status: Alert and Oriented, Awake and Alert, Able to Follow Commands Attention: Intact Ability to Follow Directions: Excellent Head/Neck Control: WFL - Hearing Hearing: Functional Speech Evaluation - Communication Primary Language: [place] Communication: Yes: Within Normal Limits Oral Expression Ability: Yes: No Impairment - Speech Production Able to Make Needs Known: Yes: WNL Intelligibility: Yes: WNL - Speech Characteristics Voice Loudness: Normal Voice Pitch: Yes: Normal Voice Phonatory-based Quality: Yes: Normal Speech Pattern: Normal Speech Clarity: < 100% Nasal Resonance: Normal Articulation: Yes: Precise Rate of Speech: Intact - Language/Auditory Comprehension Follows: Yes: 2 Stage Simple Commands Observation: Able to respond to yes/no queries: Yes, Yes/No Confusion: No, Comprehends Conversational Speech: Yes - Language/Verbal Expression Able to Respond to Simple Queries: Yes: WNL Able to Communicate Wants and Needs: Yes: WNL Functional Communication Status: Yes: WNL - Memory/Perception care home Memory: Yes: WNL Short Term Memory: Yes: WNL - Swallow Evaluation/Bedside Assessment Current Nutritional Intake: Regular, Thin Liquids Oral Secretions: Yes: WFL Dentition: Yes: Adequate Facial Symmetry at Rest: Symmetrical Facial Symmetry on Retraction: Symmetrical Sensation: Normal Against Resistance Opening: Normal Against Resistance Closing: Normal Pucker Lips: Normal Smile: Normal Lingual Movement: Normal, Symmetric Lingual Speed of Movement: Normal Lingual Movement Strgth Against Opposition: Normal Lingual Movement Characteristics: Normal Velopharyngeal Movement: Normal Laryngeal Elevation: WFL Laryngeal Movement: Able to Palpate Rate of Intake: WFL Bolus Size: WFL Labial Seal: WFL Chewing: WFL Oral Prep Time: WFL A-P Transit: WFL Pocketing: None Coughing/Throat Clear: No (3 oz water (-)) Change in Voice: No Recommendations - Speech Evaluation, Impression/Plan Impression: Pt reports facial droop and slurred speech that resolved. h/o of TIA a month ago, that last longer (per pt) and he did not go to the hospital. Pt educated on need to call 911 immediately with symptoms. Pt understood and in agreement. - Dysphagia Impressions/Plan Swallowing Skills: [facility] Dysphagia Impressions: No Impairment *Silent aspiration: cannot be R/O at bedside Dysphagia Treatment Plan: OOB for meals, OOB for 1 h. after meals - Recommendations Diet Consistency: Regular Medication Administration: Whole with water Liquids: Thin Liquids
[2019-06-25] MEDS ORDERED: CLOPIDOGREL BISULFATE 75 MG TABLET (FP) ONE ×2 (10:58→12:52)
[2019-06-25 11:38] VITALS: TEMP 97.6
[2019-06-25] MEDS ORDERED: CLOPIDOGREL BISULFATE 75 MG TABLET (FP) PO ONE (12:00)
--- NOTE | 2019-06-25 12:49 | ECHO ---
Version: 1 Name: CHRISTINA MONDRAGON Exam: Adult Echocardiogram Study Date: 06/25/2019, 8:48 AM Age: 59 Years MMode/2D Measurements & Calculations IVSd: 0.97 cm LVIDs: 3.0 cm LVIDd: 4.6 cm LVPWd: 1.50 cm LAV (MOD-bp): 54.5 ml LVOT diam: 1.94 cm Ao root diam: 2.6 cm LA dimension: 4.1 cm Doppler Measurements & Calculations MV E max kavin: 48.5 cm/sec Med E/e': 6.6 MV A max kavin: 57.7 cm/sec Med Peak E' Kavin: 7.4 cm/sec MV E/A: 0.84 Lat E/e': 4.8 Lat Peak E' Kavin: 10.0 cm/sec Ao max P.4 mmHg Ao V2 max: 126.4 cm/sec Procedure A complete two-dimensional transthoracic echocardiogram was performed (2D, M-mode, Doppler and color flow Doppler). Left Ventricle The left ventricular size, thickness and function are normal. Ejection Fraction = 55%. Grade I diast olic dysfunction, (abnormal relaxation pattern). The left ventricular wall motion is normal. Right Ventricle The right ventricle is normal in size and function. Atria The left atrium is mildly dilated. Right atrial size is normal. Mitral Valve The mitral valve is normal in structure and function. There is no mitral valve stenosis. There is tr porfirio mitral regurgitation. Tricuspid Valve The tricuspid valve is normal in structure and function. There is trace tricuspid regurgitation. The re was insufficient TR detected to calculate RV systolic pressure. Aortic Valve There is mild aortic sclerosis.;. No hemodynamically significant valvular aortic stenosis. No aortic regurgitation is present. Pulmonic Valve The pulmonic valve is normal in structure and function. Great Vessels The aortic root is normal size. Pericardium/Pleura There is no pericardial effusion. Summary Statements The left ventricular size, thickness and function are normal The left atrium is mildly dilated. The right ventricle is normal in size and function. Carlos Lemon 06/25/2019, 12:49 PM Ordering Physician: Jagruti Walter Referring Physician: JAGRUTI WALTER Performed By: Sherrell Palacios
[2019-06-25 16:09] VITALS: BP 128/79; PULSE 84
--- NOTE | 2019-06-25 16:33 | EKG ---
Test Reason : Blood Pressure : / mmHG Vent. Rate : 068 BPM Atrial Rate : 068 BPM P-R Int : 150 ms QRS Dur : 106 ms QT Int : 390 ms P-R-T Axes : 034 -07 010 degrees QTc Int : 414 ms NORMAL SINUS RHYTHM NONSPECIFIC T WAVE ABNORMALITY ABNORMAL ECG Confirmed by MD JOHNNY, BRENT ([id number]) on 06/25/2019 4:33:05 PM Referred By: Peace HANLEY Confirmed By:BRENT TURNER MD
--- NOTE | 2019-06-25 16:41 | EKG ---
Test Reason : Blood Pressure : / mmHG Vent. Rate : 064 BPM Atrial Rate : 064 BPM P-R Int : 158 ms QRS Dur : 110 ms QT Int : 414 ms P-R-T Axes : 035 000 015 degrees QTc Int : 427 ms NORMAL SINUS RHYTHM SEPTAL INFARCT (CITED ON OR BEFORE 16-MAY-2019) ABNORMAL ECG Confirmed by MD JOHNNY, BRENT ([id number]) on 06/25/2019 4:40:46 PM Referred By: Confirmed By:BRENT TURNER MD
--- NOTE | 2019-06-25 17:48 | PN ---
Teaching Attending Note Name of Resident: Jagdeep Elliott ATTENDING PHYSICIAN STATEMENT I saw and evaluated the patient. I reviewed the resident's note and discussed the case with the resident. I agree with the resident's findings and plan as documented. SUBJECTIVE: Feels well, no complaints. Facial droop and dysarthria resolved. No limb numbness/weakness. OBJECTIVE: Afebrile, Hemodynamnically Stable. Last Vital Signs Temp Pulse Resp BP Pulse Ox 97.6 F 84 16 128/79 99 06/25/19 10:00 06/25/19 16:07 06/25/19 16:07 06/25/19 16:07 06/25/19 16:07 HEENT - Atraumatic, Normocephalic. Heart - S1, S2, RRR Lungs - clear to auscultation. Abdomen - Soft, non-tender. Bowel Sounds normal. Extremities - no edema, no calf tenderness. Neuro - AAO x 3. APRIL. EOMI. Tone/Power normal all extremities. Laboratory Results - last 24 hr 06/24/19 06/24/19 06/24/19 22:10 22:10 22:10 WBC 9.3 RBC 4.55 Hgb 14.0 Hct 41.5 MCV 91.1 MCH 30.7 MCHC 33.7 RDW 13.1 Plt Count 215 MPV 9.0 Absolute Neuts (auto) 5.5 Neutrophils % 58.8 D Lymphocytes % 27.8 D Monocytes % 9.2 D Eosinophils % 3.8 D Basophils % 0.4 Nucleated RBC % 0 PT with INR 12.50 INR 1.06 PTT (Actin FS) 35.1 Sodium Potassium Chloride Carbon Dioxide Anion Gap BUN Creatinine Est GFR (CKD-EPI)AfAm Est GFR (CKD-EPI)NonAf POC Glucometer Random Glucose Hemoglobin A1c % Calcium Total Bilirubin AST ALT Alkaline Phosphatase Creatine Kinase 87 Troponin I < 0.02 Total Protein Albumin Triglycerides Cholesterol Total LDL Cholesterol HDL Cholesterol Urine Color Urine Appearance Urine pH Ur Specific [place] Urine Protein Urine Glucose (UA) Urine Ketones Urine Blood Urine Nitrite Urine Bilirubin Urine Urobilinogen Ur Leukocyte Esterase Blood Type Antibody Screen 06/24/19 06/24/19 06/24/19 22:10 22:10 23:25 WBC RBC Hgb Hct MCV MCH MCHC RDW Plt Count MPV Absolute Neuts (auto) Neutrophils % Lymphocytes % Monocytes % Eosinophils % Basophils % Nucleated RBC % PT with INR INR PTT (Actin FS) Sodium 139 Potassium 3.8 Chloride 103 Carbon Dioxide 28 Anion Gap 8 BUN 18.9 H Creatinine 0.9 Est GFR (CKD-EPI)AfAm 107.97 Est GFR (CKD-EPI)NonAf 93.16 POC Glucometer Random Glucose 189 H Hemoglobin A1c % Calcium 8.9 Total Bilirubin 0.8 AST 18 ALT 43 Alkaline Phosphatase 93 Creatine Kinase Troponin I Total Protein 6.8 Albumin 3.9 Triglycerides 122 Cholesterol 123 Total LDL Cholesterol 57 HDL Cholesterol 48 Urine Color Yellow Urine Appearance Clear Urine pH 5.5 Ur Specific [place] 1.024 Urine Protein Negative Urine Glucose (UA) Trace Urine Ketones Negative Urine Blood Negative Urine Nitrite Negative Urine Bilirubin Negative Urine Urobilinogen 1.0 Ur Leukocyte Esterase Negative Blood Type O POSITIVE Antibody Screen Negative 06/25/19 06/25/19 06/25/19 05:50 05:50 05:50 WBC RBC Hgb Hct MCV MCH MCHC RDW Plt Count MPV Absolute Neuts (auto) Neutrophils % Lymphocytes % Monocytes % Eosinophils % Basophils % Nucleated RBC % PT with INR 13.10 H INR 1.11 H PTT (Actin FS) 36.1 Sodium 140 Potassium 4.1 Chloride 103 Carbon Dioxide 30 Anion Gap 6 L BUN 16.9 Creatinine 0.8 Est GFR (CKD-EPI)AfAm 113.33 Est GFR (CKD-EPI)NonAf 97.78 POC Glucometer Random Glucose 117 H Hemoglobin A1c % 7.7 H Calcium 8.8 Total Bilirubin 1.0 AST 18 ALT 41 Alkaline Phosphatase 83 Creatine Kinase 75 Troponin I < 0.02 Total Protein 6.4 Albumin 3.8 Triglycerides Cholesterol Total LDL Cholesterol HDL Cholesterol Urine Color Urine Appearance Urine pH Ur Specific [place] Urine Protein Urine Glucose (UA) Urine Ketones Urine Blood Urine Nitrite Urine Bilirubin Urine Urobilinogen Ur Leukocyte Esterase Blood Type Antibody Screen 06/25/19 06/25/19 06/25/19 05:50 07:00 07:25 WBC 6.9 RBC 4.47 Hgb 13.8 Hct 40.2 MCV 90.0 MCH 30.9 MCHC 34.3 RDW 12.9 Plt Count 200 MPV 8.8 Absolute Neuts (auto) 3.6 Neutrophils % 52.9 Lymphocytes % 32.6 Monocytes % 9.0 Eosinophils % 5.0 H Basophils % 0.5 Nucleated RBC % 0 PT with INR INR PTT (Actin FS) Sodium Potassium Chloride Carbon Dioxide Anion Gap BUN Creatinine Est GFR (CKD-EPI)AfAm Est GFR (CKD-EPI)NonAf POC Glucometer 131 Random Glucose Hemoglobin A1c % Calcium Total Bilirubin AST ALT Alkaline Phosphatase Creatine Kinase Troponin I Total Protein Albumin Triglycerides Cholesterol Total LDL Cholesterol HDL Cholesterol Urine Color Urine Appearance Urine pH Ur Specific [place] Urine Protein Urine Glucose (UA) Urine Ketones Urine Blood Urine Nitrite Urine Bilirubin Urine Urobilinogen Ur Leukocyte Esterase Blood Type O POSITIVE Antibody Screen Negative 06/25/19 11:12 WBC RBC Hgb Hct MCV MCH MCHC RDW Plt Count MPV Absolute Neuts (auto) Neutrophils % Lymphocytes % Monocytes % Eosinophils % Basophils % Nucleated RBC % PT with INR INR PTT (Actin FS) Sodium Potassium Chloride Carbon Dioxide Anion Gap BUN Creatinine Est GFR (CKD-EPI)AfAm Est GFR (CKD-EPI)NonAf POC Glucometer 163 Random Glucose Hemoglobin A1c % Calcium Total Bilirubin AST ALT Alkaline Phosphatase Creatine Kinase Troponin I Total Protein Albumin Triglycerides Cholesterol Total LDL Cholesterol HDL Cholesterol Urine Color Urine Appearance Urine pH Ur Specific [place] Urine Protein Urine Glucose (UA) Urine Ketones Urine Blood Urine Nitrite Urine Bilirubin Urine Urobilinogen Ur Leukocyte Esterase Blood Type Antibody Screen Current Medications Generic Name Dose Route Start Last Admin Trade Name Freq PRN Reason Stop Dose Admin Atorvastatin Calcium 80 mg 06/25/19 22:00 Lipitor - PO HS BILL Citalopram Hydrobromide 40 mg 06/25/19 10:00 06/25/19 10:57 Celexa - PO 40 mg DAILY BILL Administration Clopidogrel Bisulfate 75 mg 06/25/19 10:00 06/25/19 10:57 Plavix - PO 75 mg DAILY BILL Administration Sodium Chloride 1,000 mls @ 42 mls/hr 06/25/19 00:45 06/25/19 00:57 Normal Saline - IV 42 mls/hr ASDIR BILL Administration Insulin Aspart 1 vial 06/25/19 07:00 06/25/19 12:57 Novolog Vial Sliding Scale - SQ 2 units ACHS BILL Administration Protocol Loratadine 10 mg 06/25/19 10:00 06/25/19 10:57 Claritin - PO 10 mg DAILY BILL Administration Losartan Potassium 50 mg 06/25/19 10:00 06/25/19 10:57 Cozaar - PO 50 mg DAILY BILL Administration Home Medications Medication Instructions Recorded Citalopram Hydrobromide [Celexa -] 40 mg PO HS 05/31/14 Metformin HCl [Glucophage] 500 mg PO BID 05/16/19 Telmisartan [Micardis] 40 mg PO HS 05/16/19 Atorvastatin Ca [Lipitor] 80 mg PO HS #30 tablet 06/25/19 Clopidogrel Bisulfate [Plavix -] 75 mg PO DAILY #30 tablet 06/25/19 ASSESSMENT/PLAN: 59 year old male with history of HTN, Hx of TIA, DM 2, HLD, RACH, presents with L facial droop, slurring of speech and dysphagia, all of which resolved after presentation to the ED. 1. Acute TIA s/p recent TIA, on Aspirin CT Head - no acute intracranial pathology MRI negative Echo - normal. Carotid Duplex - no hemodynamicaly significant stenosis. Seen by Neurology - Aspirin changed to Plavix. Continue Statin. Nerologically optimized for discharge. Neuro follow up on discharge. 2. HTN - Continue Telmisartan 3. DM 2 - uncontrolled. A1C 7.7. Resume Metformin. Further titration of DM 2 meds as per PCP. 4. HLD - continue Statin. 5. RACH on CPAP at night - continue. Medically stable and Neurologically stable for discharge with Neurology follow up.
--- NOTE | 2019-06-25 19:59 | DS ---
Physical Exam: SUBJECTIVE: Patient seen and examined OBJECTIVE: Vital Signs Period Temp Pulse Resp BP Sys/Navas Pulse Ox Last 24 Hr 97.6 F-98.1 F 51-84 16-18 128-149/71-89 19-100 PHYSICAL EXAM GENERAL: The patient is awake, alert, and fully oriented, in no acute distress. HEAD: Normal with no signs of trauma. EYES: PERRL, extraocular movements intact, sclera anicteric, conjunctiva clear. ENT: Ears normal, nares patent, oropharynx clear without exudates, moist mucous membranes. NECK: Trachea midline, full range of motion, supple. LUNGS: Breath sounds equal, clear to auscultation bilaterally, no wheezes, no crackles, no accessory muscle use. HEART: Regular rate and rhythm, S1, S2 without murmur, rub or gallop. ABDOMEN: Soft, nontender, nondistended, normoactive bowel sounds, no guarding, no rebound, no hepatosplenomegaly, no masses. EXTREMITIES: 2+ pulses, warm, well-perfused, no edema. NEUROLOGICAL: Cranial nerves II through XII grossly intact. Normal speech, gait not observed. PSYCH: Normal mood, normal affect. SKIN: Warm, dry, normal turgor, no rashes or lesions noted. LABS Laboratory Results - last 24 hr 06/24/19 06/24/19 06/24/19 22:10 22:10 22:10 WBC 9.3 RBC 4.55 Hgb 14.0 Hct 41.5 MCV 91.1 MCH 30.7 MCHC 33.7 RDW 13.1 Plt Count 215 MPV 9.0 Absolute Neuts (auto) 5.5 Neutrophils % 58.8 D Lymphocytes % 27.8 D Monocytes % 9.2 D Eosinophils % 3.8 D Basophils % 0.4 Nucleated RBC % 0 PT with INR 12.50 INR 1.06 PTT (Actin FS) 35.1 Sodium Potassium Chloride Carbon Dioxide Anion Gap BUN Creatinine Est GFR (CKD-EPI)AfAm Est GFR (CKD-EPI)NonAf POC Glucometer Random Glucose Hemoglobin A1c % Calcium Total Bilirubin AST ALT Alkaline Phosphatase Creatine Kinase 87 Troponin I < 0.02 Total Protein Albumin Triglycerides Cholesterol Total LDL Cholesterol HDL Cholesterol Urine Color Urine Appearance Urine pH Ur Specific [place] Urine Protein Urine Glucose (UA) Urine Ketones Urine Blood Urine Nitrite Urine Bilirubin Urine Urobilinogen Ur Leukocyte Esterase Blood Type Antibody Screen 06/24/19 06/24/19 06/24/19 22:10 22:10 23:25 WBC RBC Hgb Hct MCV MCH MCHC RDW Plt Count MPV Absolute Neuts (auto) Neutrophils % Lymphocytes % Monocytes % Eosinophils % Basophils % Nucleated RBC % PT with INR INR PTT (Actin FS) Sodium 139 Potassium 3.8 Chloride 103 Carbon Dioxide 28 Anion Gap 8 BUN 18.9 H Creatinine 0.9 Est GFR (CKD-EPI)AfAm 107.97 Est GFR (CKD-EPI)NonAf 93.16 POC Glucometer Random Glucose 189 H Hemoglobin A1c % Calcium 8.9 Total Bilirubin 0.8 AST 18 ALT 43 Alkaline Phosphatase 93 Creatine Kinase Troponin I Total Protein 6.8 Albumin 3.9 Triglycerides 122 Cholesterol 123 Total LDL Cholesterol 57 HDL Cholesterol 48 Urine Color Yellow Urine Appearance Clear Urine pH 5.5 Ur Specific [place] 1.024 Urine Protein Negative Urine Glucose (UA) Trace Urine Ketones Negative Urine Blood Negative Urine Nitrite Negative Urine Bilirubin Negative Urine Urobilinogen 1.0 Ur Leukocyte Esterase Negative Blood Type O POSITIVE Antibody Screen Negative 06/25/19 06/25/19 06/25/19 05:50 05:50 05:50 WBC RBC Hgb Hct MCV MCH MCHC RDW Plt Count MPV Absolute Neuts (auto) Neutrophils % Lymphocytes % Monocytes % Eosinophils % Basophils % Nucleated RBC % PT with INR 13.10 H INR 1.11 H PTT (Actin FS) 36.1 Sodium 140 Potassium 4.1 Chloride 103 Carbon Dioxide 30 Anion Gap 6 L BUN 16.9 Creatinine 0.8 Est GFR (CKD-EPI)AfAm 113.33 Est GFR (CKD-EPI)NonAf 97.78 POC Glucometer Random Glucose 117 H Hemoglobin A1c % 7.7 H Calcium 8.8 Total Bilirubin 1.0 AST 18 ALT 41 Alkaline Phosphatase 83 Creatine Kinase 75 Troponin I < 0.02 Total Protein 6.4 Albumin 3.8 Triglycerides Cholesterol Total LDL Cholesterol HDL Cholesterol Urine Color Urine Appearance Urine pH Ur Specific [place] Urine Protein Urine Glucose (UA) Urine Ketones Urine Blood Urine Nitrite Urine Bilirubin Urine Urobilinogen Ur Leukocyte Esterase Blood Type Antibody Screen 06/25/19 06/25/19 06/25/19 05:50 07:00 07:25 WBC 6.9 RBC 4.47 Hgb 13.8 Hct 40.2 MCV 90.0 MCH 30.9 MCHC 34.3 RDW 12.9 Plt Count 200 MPV 8.8 Absolute Neuts (auto) 3.6 Neutrophils % 52.9 Lymphocytes % 32.6 Monocytes % 9.0 Eosinophils % 5.0 H Basophils % 0.5 Nucleated RBC % 0 PT with INR INR PTT (Actin FS) Sodium Potassium Chloride Carbon Dioxide Anion Gap BUN Creatinine Est GFR (CKD-EPI)AfAm Est GFR (CKD-EPI)NonAf POC Glucometer 131 Random Glucose Hemoglobin A1c % Calcium Total Bilirubin AST ALT Alkaline Phosphatase Creatine Kinase Troponin I Total Protein Albumin Triglycerides Cholesterol Total LDL Cholesterol HDL Cholesterol Urine Color Urine Appearance Urine pH Ur Specific [place] Urine Protein Urine Glucose (UA) Urine Ketones Urine Blood Urine Nitrite Urine Bilirubin Urine Urobilinogen Ur Leukocyte Esterase Blood Type O POSITIVE Antibody Screen Negative 06/25/19 11:12 WBC RBC Hgb Hct MCV MCH MCHC RDW Plt Count MPV Absolute Neuts (auto) Neutrophils % Lymphocytes % Monocytes % Eosinophils % Basophils % Nucleated RBC % PT with INR INR PTT (Actin FS) Sodium Potassium Chloride Carbon Dioxide Anion Gap BUN Creatinine Est GFR (CKD-EPI)AfAm Est GFR (CKD-EPI)NonAf POC Glucometer 163 Random Glucose Hemoglobin A1c % Calcium Total Bilirubin AST ALT Alkaline Phosphatase Creatine Kinase Troponin I Total Protein Albumin Triglycerides Cholesterol Total LDL Cholesterol HDL Cholesterol Urine Color Urine Appearance Urine pH Ur Specific [place] Urine Protein Urine Glucose (UA) Urine Ketones Urine Blood Urine Nitrite Urine Bilirubin Urine Urobilinogen Ur Leukocyte Esterase Blood Type Antibody Screen HOSPITAL COURSE: Date of Admission:06/25/19 Date of Discharge: 06/25/19 Discharge Summary Problems reviewed: Yes Reason For Visit: HISTORY OF TRANSIENT ISCHEMIC ATTACK Current Active Problems History of TIAs (Acute) Transient ischemic attack (Acute) Condition: Improved - Instructions Diet, Activity, Other Instructions: You were seen in the hospital for complaints of facial droop and slurred speech. You had a head CT and brain MRI that did not show any acute condition requiring emergent intervention. You were evaluated by a neurologist who recommended adjustments to your medications. Additionally, you were seen by the speech pathologist and found to have no issues with your speech or swallowing. You were monitored overnight in the hospital and are now stable for discharge home. Medications We have made the following adjustments to your medication regimen: Please STOP taking Aspirin. Instead, please START taking Clopidogrel 75 mg once a day by mouth. Please STOP taking Atorvastatin 40 mg. We have increased your dosage of this medication. You may START taking Atorvastatin 80 mg once a day by mouth. Recommendations It is highly advised that you eat a low-cholesterol diet. Please have your blood pressure checked regularly and continue taking your blood pressure medications as prescribed. Follow Up Please follow up with your primary care physician, Dr. Marsh within 1 week. You will need blood work (LFTs) to check your liver function since you have been started on a higher dose of your statin. Please follow up with your neurologist within 1 week. If you do not have one, you may make an appointment with Dr. Lunsford. If you experience new facial droop, slurred speech, significant weakness, or other neurological symptoms, please proceed to your nearest emergency room immediately. Referrals: Erika BOLAÑOS [Other] - 1 Week Sammy Lunsford MD [Staff Physician] - 1 Week Disposition: HOME - Home Medications Comprehensive Discharge Medication List: Ambulatory Orders Citalopram Hydrobromide [Celexa -] 40 mg PO HS 05/31/14 Metformin HCl [Glucophage] 500 mg PO BID 05/16/19 Telmisartan [Micardis] 40 mg PO HS 05/16/19 Atorvastatin Ca [Lipitor] 80 mg PO HS #30 tablet 06/25/19 Clopidogrel Bisulfate [Plavix -] 75 mg PO DAILY #30 tablet 06/25/19 ATTENDING PHYSICIAN STATEMENT I saw and evaluated the patient. I reviewed the resident's note and discussed the case with the resident. I agree with the resident's findings and plan as documented. SUBJECTIVE: OBJECTIVE: ASSESSMENT AND PLAN:
[2019-06-25] MEDS ORDERED: ATORVASTATIN CA 80 MG TABLET (FP) PO SCH (22:00)
[2019-06-25] MEDS ORDERED: TELMISARTAN 40 MG PO SCH (22:00)
[2019-06-25] MEDS ORDERED: PATIENT'S OWN MEDICATION (NON-FORMULARY) (Citalopram Hydrobromide [Celexa -] 40 MG) PO SCH (22:00)
== END 2019-06-25 23:00 | disposition home or self-care (01) | DRG 69 ==
LOC: JER 20:54 → JERBED 06-25 00:02
PROVIDERS: ADMIT Internal Medicine
DX: G45.9 Transient cerebral ischemic attack, unspecified (principal); R29.810 Facial weakness; R47.81 Slurred speech; I10 Essential (primary) hypertension; E78.5 Hyperlipidemia, unspecified; G47.33 Obstructive sleep apnea (adult) (pediatric); E11.65 Type 2 diabetes mellitus with hyperglycemia
CPT/HCPCS: 36415; 70450-TC; 70551-TC; 71046-TC-FY; 80053; 80061; 81003; 82550; 82962; 83036; 83721; 84484; 85025; 85610; 85730; 86850; 86900; 86901; 93005; 93010; 93306-TC; 93880-TC; 94660; 99285-25; J7030

== ENCOUNTER 2024-08-10 13:35 | Observation (INO) | payer BC ==
[2024-08-10 13:44] VITALS: BMI 26.6
[2024-08-10 14:28] LABS: ABSOLUTE IMMATURE GRANULOCYTES 0.02 x10^3/uL (0.0-0.031); BASOPHILS # 0.03 x10^3/uL (0.01-0.08); EOSINOPHILS # 0.34 x10^3/uL (0.04-0.54); HEMOGLOBIN 13.7 g/dL (13.7-17.5); MCHC 33.4 g/dl (32.3-36.5); MEAN CELL VOLUME 91.7 fl (79.0-92.2); MEAN PLT VOLUME 10.2 fl (9.4-12.4); MONOCYTE # 0.46 x10^3/uL (0.30-0.82); MONOCYTE % 6.8 % (5.3-12.2); PLATELET COUNT 198 x10^3/uL (163-337); RDW 12.2 % (12.2-16.4)
[2024-08-10] MEDS ORDERED: ONDANSETRON 4 MG/2 ML VIAL ONE (14:34)
[2024-08-10] MEDS: ONDANSETRON 4 MG/2 ML VIAL IVPUSH ONE (14:43)
[2024-08-10] MEDS: LACTATED RINGERS SOLUTION 1000 ML INFUS.BAG IV ONE (14:43)
[2024-08-10 14:49] LABS: POTASSIUM 3.5 mmol/L (3.5-5.1)
[2024-08-10 14:51] LABS: ALBUMIN 4.2 g/dl (3.4-5.0); CALCIUM 9.9 mg/dL (8.5-10.1)
[2024-08-10 14:52] LABS: BLOOD UREA NITROGEN 14.9 mg/dL (7-18); MAGNESIUM 1.6 mg/dL (1.8-2.4)
[2024-08-10 14:55] LABS: CREATININE 1.1 mg/dL (0.55-1.3)
[2024-08-10 14:56] LABS: TOT PROT 6.6 g/dl (6.4-8.2)
[2024-08-10] MEDS ORDERED: MAGNESIUM OXIDE 400 MG TABLET (FP) ONE (19:01)
[2024-08-10] MEDS: MAGNESIUM OXIDE 400 MG TABLET (FP) PO ONE (19:06)
[2024-08-10 20:59] LABS: URINE APPEARANCE CLEAR; URINE BILIRUBIN NEGATIVE (NEGATIVE); URINE COLOR YELLOW; URINE GLUCOSE (UA) NEGATIVE (NEGATIVE); URINE KETONE NEGATIVE (NEGATIVE); URINE LEUK ESTERASE NEGATIVE (NEGATIVE); URINE NITRITE NEGATIVE (NEGATIVE); URINE PROTEIN NEGATIVE (NEGATIVE)
[2024-08-10] MEDS ORDERED: LOSARTAN POTASSIUM 50 MG TABLET ONE (22:11)
[2024-08-10] MEDS ORDERED: CITALOPRAM HYDROBROMIDE 10 MG TABLET ONE (22:12)
[2024-08-10] MEDS ORDERED: ATORVASTATIN CA 80 MG TABLET (FP) ONE (22:12)
[2024-08-10] MEDS: CITALOPRAM HYDROBROMIDE 20 MG TABLET PO SCH (22:22)
[2024-08-10] MEDS: ATORVASTATIN CA 80 MG TABLET (FP) PO SCH (22:22)
[2024-08-10] MEDS: LOSARTAN POTASSIUM 50 MG TABLET PO SCH (22:22)
[2024-08-10] MEDS: INSULIN ASPART SLIDING SCALE (NOVOLOG) 1 VIAL SQ SCH (22:23)
[2024-08-11 06:40] LABS: ABSOLUTE IMMATURE GRANULOCYTES 0.02 x10^3/uL (0.0-0.031); BASOPHILS # 0.04 x10^3/uL (0.01-0.08); EOSINOPHIL % 2.5 % (0.8-7.0); EOSINOPHILS # 0.21 x10^3/uL (0.04-0.54); HEMATOCRIT 38.3 % (40.1-51.0); MCHC 33.9 g/dl (32.3-36.5); MEAN CELL VOLUME 91.6 fl (79.0-92.2); MEAN PLT VOLUME 10.7 fl (9.4-12.4); MONOCYTE % 9.5 % (5.3-12.2); PLATELET COUNT 183 x10^3/uL (163-337); RDW 12.4 % (12.2-16.4)
[2024-08-11 06:57] LABS: POTASSIUM 3.5 mmol/L (3.5-5.1)
[2024-08-11 06:59] LABS: ALBUMIN 3.6 g/dl (3.4-5.0); CALCIUM 8.5 mg/dL (8.5-10.1)
[2024-08-11 07:00] LABS: MAGNESIUM 1.7 mg/dL (1.8-2.4)
[2024-08-11 07:03] LABS: CREATININE 0.9 mg/dL (0.55-1.3); PHOSPHOROUS 3.4 mg/dL (2.5-4.9)
[2024-08-11 07:04] LABS: BILIRUBIN,TOTAL 0.8 mg/dL (0.2-1); TOT PROT 5.6 g/dl (6.4-8.2)
[2024-08-11] MEDS ORDERED: MAGNESIUM 1GM/D5W - 1 GM/100 ML IVPB IVPB ONE (07:47)
[2024-08-11] MEDS: MAGNESIUM 1GM/D5W - 1 GM/100 ML IVPB IVPB ONE (08:04)
[2024-08-11 08:16] VITALS: TEMP 98
[2024-08-11] MEDS ORDERED: LOSARTAN POTASSIUM 50 MG TABLET ONE (09:48)
[2024-08-11] MEDS ORDERED: TAMSULOSIN HCL 0.4 MG CAP ONE (09:48)
[2024-08-11] MEDS ORDERED: CLOPIDOGREL BISULFATE 75 MG TABLET (FP) ONE (09:49)
[2024-08-11] MEDS ORDERED: PANTOPRAZOLE 40 MG TABLET PO ONE (09:49)
[2024-08-11] MEDS ORDERED: ENOXAPARIN NA (PORCINE) 40 MG/0.4 ML DISP.SYRIN SQ ONE (09:50)
[2024-08-11] MEDS: CLOPIDOGREL BISULFATE 75 MG TABLET (FP) PO SCH (09:57)
[2024-08-11] MEDS: TAMSULOSIN HCL 0.4 MG CAP PO SCH (09:57)
[2024-08-11] MEDS: PANTOPRAZOLE 40 MG TABLET PO SCH (09:57)
[2024-08-11] MEDS: ENOXAPARIN NA (PORCINE) 40 MG/0.4 ML DISP.SYRIN SQ SCH (09:58)
[2024-08-11] MEDS: FINASTERIDE 5 MG TABLET (FP) PO SCH ×2 (11:50→19:25)
[2024-08-11] MEDS ORDERED: INSULIN ASPART SLIDING SCALE (NOVOLOG) 1 VIAL SQ ONE (16:36)
[2024-08-11 19:56] VITALS: BP 151/79; PULSE 79; RESP 20
== END 2024-08-11 21:21 | disposition home or self-care (01) ==
LOC: JER 13:35 → JERBED 16:47
PROVIDERS: ADMIT Student in an Organized Health Care Education/Training Program
PROC: 3E013VG Introduction of Insulin into Subcutaneous Tissue, Percutaneous Approach (ICD-10-PCS; principal; 2024-08-10)
PROC: 3E0337Z Introduction of Electrolytic and Water Balance Substance into Peripheral Vein, Percutaneous Approach (ICD-10-PCS; 2024-08-10)
PROC: 3E033GC Introduction of Other Therapeutic Substance into Peripheral Vein, Percutaneous Approach (ICD-10-PCS; 2024-08-10)
DX: R55 Syncope and collapse (principal); E83.42 Hypomagnesemia; I10 Essential (primary) hypertension; E78.5 Hyperlipidemia, unspecified; E11.9 Type 2 diabetes mellitus without complications; Z86.73 Personal history of transient ischemic attack (TIA), and cerebral infarction without residual deficits
CPT/HCPCS: 0241U-QW; 36415; 70450-TC; 70551-TC; 71045-TC-FY; 80053; 81003; 82550; 82962; 83036; 83690; 83735; 84100; 84443; 84484; 85025; 85379; 93005; 93010; 93306-TC; 99285-25; G0378